=== PATIENT | female | born 1985 | race Two or more races ===

== ENCOUNTER 2020-11-02 21:34 | Emergency (ER) | payer OTHER ==
[~2020-11-02] VITALS: Ht 160 cm; Wt 60.6 kg
[2020-11-02] MEDS ORDERED: MESA400C2 PO (22:07)
[2020-11-02] MEDS ORDERED: RISP2TAB45 PO (22:07)
[2020-11-02] MEDS ORDERED: SERT-162 PO (22:07)
[2020-11-02] MEDS ORDERED: MORPHINE SULFATE 4 MG/ML SYRINGE IVP ONE (22:15)
[2020-11-02] MEDS ORDERED: BARIUM SULFATE 0.1% SUSPENSION 450 ML BOTTLE PO ONE (22:15)
[2020-11-02] MEDS ORDERED: PB/HYOSCY/ATR/SCOP/LIDO/MAALOX 55 ML BOTTLE PO ONE (22:15)
[2020-11-02] MEDS ORDERED: SODIUM CHLORIDE 0.9% 1,000 ML IV ONE (22:15)
[2020-11-02] MEDS ORDERED: FAMOTIDINE 10 MG/ML 2 ML VIAL IVP ONE (22:15)
[2020-11-02 22:25] LABS: APPEARANCE,URINE CLOUDY (CLEAR); BILIRUBIN,URINE NEGATIVE (NEGATIVE); GLUCOSE, URINE (UA) NEGATIVE (NEGATIVE); KETONES,URINE NEGATIVE (NEGATIVE); LEUKOCYTE ESTERASE ,URINE NEGATIVE (NEGATIVE); NITRATE,URINE NEGATIVE (NEGATIVE); OCCULT BLOOD,URINE NEGATIVE (NEGATIVE); PH,URINE 7.5 (5.0-8.0); PROTEIN,URINE NEGATIVE (NEGATIVE)
[2020-11-02 22:38] LABS: BACTERIA,URINE None Seen /HPF (None Seen); RBC,URINE 0-2 /HPF (0-2); SQUAMOUS EPITHELIAL CELL,UR None Seen /LPF (None Seen); WBC,URINE 0-2 /HPF (0-5)
[2020-11-02 22:43] LABS: BASOPHILS % (AUTO) 0.5 % (0.0-2.0); EOSINOPHILS % (AUTO) 1.8 % (1.0-6.0); HEMATOCRIT 38.7 % (36-46); LYMPHOCYTES # (AUTO) 2.3 K/uL (1.0-4.8); MEAN CORPUSCULAR HEMOGLOBIN 29.9 pg (26.0-34.0); MEAN CORPUSCULAR HGB CONC 33.7 G/dL (31.0-37.0); MEAN CORPUSCULAR VOLUME 89 fL (80-100); MONOCYTES # (AUTO) 0.6 K/uL (0.1-1.0); MONOCYTES % (AUTO) 8.6 % (2.0-9.0); NEUTROPHILS # (AUTO) 4.3 K/uL (1.8-7.7); NEUTROPHILS % (AUTO) 58.1 % (40.0-70.0); PLATELET COUNT (AUTO) 273 K/uL (150-450); RED BLOOD CELL COUNT(AUTO) 4.37 MIL/uL (4.00-5.20); RED CELL DISTRIBUTION WIDTH 13.3 % (11.5-14.5)
[2020-11-02 22:53] LABS: ANION GAP 3 mmol/L (8-16); CALCIUM, TOTAL 8.9 mg/dL (8.8-10.5); CARBON DIOXIDE 31 mmol/L (22-29); CHLORIDE 101 mmol/L (98-107); CREATININE 0.93 mg/dL (0.60-1.30); GLOMERULAR FILTR. RATE CALC > 60 mL/min (>60); GLUCOSE,RANDOM 100 mg/dL (70-110); POTASSIUM 4.5 mmol/L (3.5-5.1); SODIUM SERUM 135 mmol/L (136-145); UREA NITROGEN, BLOOD 14 mg/dL (7-18)
[2020-11-02 23:06] LABS: ALANINE AMINOTRANSFERASE 21 U/L (12-78); ALBUMIN 3.5 g/dL (3.4-5.0); ALKALINE PHOSPHATASE 78 U/L (46-116); ASPARTATE AMINOTRANSFERASE 18 U/L (15-37); BILIRUBIN,TOTAL 0.6 mg/dL (0.1-1.0); HCG,QUANTITATIVE 6 mIU/mL (0-6); LIPASE 91 U/L (73-393); TOTAL PROTEIN, SERUM 6.2 g/dL (6.4-8.2)
[2020-11-02] MEDS ORDERED: SODIUM CHLORIDE 0.9% 100 ML ONE (23:09)
[2020-11-02] MEDS ORDERED: IOHEXOL 350 MG/ML 100 ML VIAL ONE (23:09)
[2020-11-03 00:30] VITALS: BP 122/63
== END 2020-11-03 00:59 | disposition home or self-care (01) ==
LOC: EMS 21:36
DX: K29.70 Gastritis, unspecified, without bleeding (principal); Z90.710 Acquired absence of both cervix and uterus
CPT/HCPCS: 36415; 74177; 80053; 81001; 83690; 84702; 85025; 96361; 96374; 96375; 99285; A9575; J2270; J3490; J7030; J7050

== ENCOUNTER 2020-11-18 17:20 | Emergency (ER) | payer OTHER ==
[~2020-11-18] VITALS: Ht 162.6 cm; Wt 60.0 kg
[~2020-11-18 17:20] MED LIST: MESA400C2 PO; RISP0.5T61 PO; RISP2TAB45 PO; SERT-158 PO; SERT-162 PO
[2020-11-18] MEDS ORDERED: KETOROLAC TROMETHAMINE 30 MG/ML VIAL IVP ONE (18:30)
[2020-11-18] MEDS ORDERED: PANTOPRAZOLE SODIUM 40 MG/VIAL IVP ONE (18:30)
[2020-11-18 19:02] LABS: BASOPHILS % (AUTO) 1.1 % (0.0-2.0); EOSINOPHILS % (AUTO) 1.4 % (1.0-6.0); HEMATOCRIT 38.2 % (36-46); HEMOGLOBIN 12.7 g/dL (12.0-16.0); LYMPHOCYTES # (AUTO) 1.3 K/uL (1.0-4.8); LYMPHOCYTES % (AUTO) 26.1 % (22.0-44.0); MEAN CORPUSCULAR HEMOGLOBIN 29.6 pg (26.0-34.0); MEAN CORPUSCULAR HGB CONC 33.2 G/dL (31.0-37.0); MEAN CORPUSCULAR VOLUME 89 fL (80-100); MONOCYTES # (AUTO) 0.5 K/uL (0.1-1.0); MONOCYTES % (AUTO) 10.4 % (2.0-9.0); PLATELET COUNT (AUTO) 298 K/uL (150-450); RED BLOOD CELL COUNT(AUTO) 4.28 MIL/uL (4.00-5.20); RED CELL DISTRIBUTION WIDTH 13.1 % (11.5-14.5)
[2020-11-18 19:12] LABS: CALCIUM, TOTAL 8.6 mg/dL (8.8-10.5); CARBON DIOXIDE 27 mmol/L (22-29); CHLORIDE 106 mmol/L (98-107); CREATININE 0.93 mg/dL (0.60-1.30); GLOMERULAR FILTR. RATE CALC > 60 mL/min (>60); GLUCOSE,RANDOM 100 mg/dL (70-110); UREA NITROGEN, BLOOD 11 mg/dL (7-18)
[2020-11-18 19:23] LABS: ALANINE AMINOTRANSFERASE 25 U/L (12-78); ALBUMIN 3.7 g/dL (3.4-5.0); ALKALINE PHOSPHATASE 85 U/L (46-116); ASPARTATE AMINOTRANSFERASE 15 U/L (15-37); BILIRUBIN,TOTAL 0.8 mg/dL (0.1-1.0); HCG,QUANTITATIVE 5 mIU/mL (0-6); LIPASE 93 U/L (73-393); TOTAL PROTEIN, SERUM 6.5 g/dL (6.4-8.2)
[2020-11-18 19:30] LABS: POTASSIUM 3.9 mmol/L (3.5-5.1); SODIUM SERUM 145 mmol/L (136-145)
[2020-11-18 19:33] LABS: ANION GAP 12 mmol/L (8-16)
[2020-11-18 20:15] VITALS: BP 117/72
== END 2020-11-18 20:56 | disposition home or self-care (01) ==
LOC: EMS 17:20
DX: K29.70 Gastritis, unspecified, without bleeding (principal); Z90.710 Acquired absence of both cervix and uterus; Z90.89 Acquired absence of other organs
CPT/HCPCS: 80053; 83690; 84702; 85025; 96374; 99283; C9113

== ENCOUNTER → 2021-02-04 | Emergency (ER) | payer MEDICAID ==
[~2021-02-04] VITALS: Ht 162.6 cm; Wt 63.6 kg
[~2021-02-04] MED LIST changes: +BISMUTH SUBSALICYLATE 524 MG/30 ML SUSPENSION UDCUP PO ONE; +ONDANSETRON HCL 4 MG/2 ML VIAL IVP ONE; +PANT-31 PO; +PRED-409 PO; +PRED20 PO; +SODIUM CHLORIDE 0.9% 1,000 ML IV ONE
[2021-02-04 20:26] LABS: APPEARANCE,URINE CLOUDY (CLEAR); BILIRUBIN,URINE NEGATIVE (NEGATIVE); GLUCOSE, URINE (UA) NEGATIVE (NEGATIVE); KETONES,URINE NEGATIVE (NEGATIVE); LEUKOCYTE ESTERASE ,URINE TRACE (NEGATIVE); NITRATE,URINE NEGATIVE (NEGATIVE); OCCULT BLOOD,URINE NEGATIVE (NEGATIVE); PROTEIN,URINE NEGATIVE (NEGATIVE); UROBILINOGEN,URINE 0.2 mg/dL (<=1.0)
[2021-02-04 20:29] LABS: BASOPHILS % (AUTO) 0.5 % (0.0-2.0); EOSINOPHILS % (AUTO) 1.2 % (1.0-6.0); HEMATOCRIT 36.9 % (36-46); HEMOGLOBIN 12.5 g/dL (12.0-16.0); LYMPHOCYTES # (AUTO) 1.5 K/uL (1.0-4.8); LYMPHOCYTES % (AUTO) 27.7 % (22.0-44.0); MEAN CORPUSCULAR HEMOGLOBIN 30.4 pg (26.0-34.0); MEAN CORPUSCULAR HGB CONC 33.9 G/dL (31.0-37.0); MEAN CORPUSCULAR VOLUME 89 fL (80-100); MONOCYTES # (AUTO) 0.9 K/uL (0.1-1.0); MONOCYTES % (AUTO) 15.5 % (2.0-9.0); NEUTROPHILS % (AUTO) 55.1 % (40.0-70.0); PLATELET COUNT (AUTO) 242 K/uL (150-450); RED BLOOD CELL COUNT(AUTO) 4.13 MIL/uL (4.00-5.20); RED CELL DISTRIBUTION WIDTH 13.3 % (11.5-14.5)
[2021-02-04 20:33] LABS: ANION GAP 8 mmol/L (8-16); CALCIUM, TOTAL 8.4 mg/dL (8.8-10.5); CARBON DIOXIDE 26 mmol/L (22-29); CHLORIDE 105 mmol/L (98-107); CREATININE 0.72 mg/dL (0.60-1.30); GLOMERULAR FILTR. RATE CALC > 60 mL/min (>60); GLUCOSE,RANDOM 102 mg/dL (70-110); POTASSIUM 3.7 mmol/L (3.5-5.1); SODIUM SERUM 139 mmol/L (136-145); UREA NITROGEN, BLOOD 14 mg/dL (7-18)
[2021-02-04 20:45] LABS: ALANINE AMINOTRANSFERASE 25 U/L (12-78); ALBUMIN 3.2 g/dL (3.4-5.0); ALKALINE PHOSPHATASE 82 U/L (46-116); ASPARTATE AMINOTRANSFERASE 17 U/L (15-37); BILIRUBIN,TOTAL 0.4 mg/dL (0.1-1.0); HCG,QUANTITATIVE 3 mIU/mL (0-6); LIPASE 109 U/L (73-393); TOTAL PROTEIN, SERUM 6.3 g/dL (6.4-8.2)
[2021-02-04 20:48] LABS: RBC,URINE None Seen /HPF (0-2)
[2021-02-04 20:49] LABS: BACTERIA,URINE None Seen /HPF (None Seen); SQUAMOUS EPITHELIAL CELL,UR Few /LPF (None Seen)
[2021-02-04 21:10] VITALS: BP 109/76
== END | disposition home or self-care (01) ==
LOC: EMS 18:58
DX: K50.90 Crohn's disease, unspecified, without complications (principal); R20.0 Anesthesia of skin; Z90.710 Acquired absence of both cervix and uterus; Z90.89 Acquired absence of other organs; Z88.1 Allergy status to other antibiotic agents; Z91.013 Allergy to seafood
CPT/HCPCS: 36415; 80053; 81001; 83690; 84702; 85025; 96361; 96374; 99283; J2405; J7030

== ENCOUNTER 2021-02-17 21:29 | Emergency (ER) | payer MEDICAID ==
[~2021-02-17] VITALS: Ht 162.6 cm; Wt 64.0 kg
[~2021-02-17 21:29] MED LIST changes: -BISMUTH SUBSALICYLATE 524 MG/30 ML SUSPENSION UDCUP PO ONE; -ONDANSETRON HCL 4 MG/2 ML VIAL IVP ONE; -SODIUM CHLORIDE 0.9% 1,000 ML IV ONE
[2021-02-17] MEDS ORDERED: LIDOCAINE 5% TRANSDERMAL PATCH TD ONE (23:00)
[2021-02-17] MEDS ORDERED: ACETAMINOPHEN 500 MG TABLET PO ONE (23:00)
[2021-02-17] MEDS ORDERED: SODIUM CHLORIDE 0.9% 100 ML ONE (23:33)
[2021-02-17] MEDS ORDERED: IOHEXOL 350 MG/ML 100 ML VIAL ONE (23:34)
[2021-02-18 00:22] LABS: BASOPHILS % (AUTO) 0.7 % (0.0-2.0); EOSINOPHILS % (AUTO) 1.4 % (1.0-6.0); HEMATOCRIT 37.8 % (36-46); HEMOGLOBIN 12.8 g/dL (12.0-16.0); LYMPHOCYTES # (AUTO) 1.4 K/uL (1.0-4.8); LYMPHOCYTES % (AUTO) 21.9 % (22.0-44.0); MEAN CORPUSCULAR VOLUME 88 fL (80-100); MONOCYTES # (AUTO) 0.5 K/uL (0.1-1.0); MONOCYTES % (AUTO) 8.4 % (2.0-9.0); NEUTROPHILS # (AUTO) 4.4 K/uL (1.8-7.7); NEUTROPHILS % (AUTO) 67.6 % (40.0-70.0); PLATELET COUNT (AUTO) 287 K/uL (150-450); RED BLOOD CELL COUNT(AUTO) 4.28 MIL/uL (4.00-5.20)
[2021-02-18 00:30] LABS: ANION GAP 5 mmol/L (8-16); CALCIUM, TOTAL 8.3 mg/dL (8.8-10.5); CARBON DIOXIDE 29 mmol/L (22-29); CHLORIDE 102 mmol/L (98-107); CREATININE 0.73 mg/dL (0.60-1.30); GLOMERULAR FILTR. RATE CALC > 60 mL/min (>60); GLUCOSE,RANDOM 99 mg/dL (70-110); POTASSIUM 3.8 mmol/L (3.5-5.1); SODIUM SERUM 136 mmol/L (136-145); UREA NITROGEN, BLOOD 11 mg/dL (7-18)
[2021-02-18 00:41] LABS: ALANINE AMINOTRANSFERASE 24 U/L (12-78); ALBUMIN 3.4 g/dL (3.4-5.0); ALKALINE PHOSPHATASE 82 U/L (46-116); ASPARTATE AMINOTRANSFERASE 14 U/L (15-37); BILIRUBIN,TOTAL 0.8 mg/dL (0.1-1.0); HCG,QUANTITATIVE 3 mIU/mL (0-6); LIPASE 79 U/L (73-393); TOTAL PROTEIN, SERUM 6.3 g/dL (6.4-8.2)
[2021-02-18 01:51] VITALS: BP 106/69
== END 2021-02-18 01:54 | disposition home or self-care (01) ==
LOC: EMS 21:31
DX: R07.1 Chest pain on breathing (principal); Z88.1 Allergy status to other antibiotic agents; Z91.013 Allergy to seafood; Z79.899 Other long term (current) drug therapy
CPT/HCPCS: 71260; 74177; 80053; 83690; 84702; 85025; 99285; A9575; J7050; 72193; 74160; Q9967

== ENCOUNTER 2021-12-08 17:35 | Emergency (ER) | payer MEDICAID ==
[~2021-12-08] VITALS: Ht 162.6 cm; Wt 52.3 kg
[~2021-12-08 17:35] MED LIST changes: -PRED-409 PO; +PRED-549 PO; +PRED-554 PO; -PRED20 PO
[2021-12-08 18:11] VITALS: BP 104/65
[2021-12-08] MEDS ORDERED: SODIUM CHLORIDE 0.9% 1,000 ML IV ONE (20:45)
[2021-12-08 20:57] LABS: BASOPHILS % (AUTO) 0.5 % (0.0-2.0); EOSINOPHILS % (AUTO) 0.5 % (1.0-6.0); HEMATOCRIT 40.6 % (36-46); HEMOGLOBIN 13.7 g/dL (12.0-16.0); LYMPHOCYTES # (AUTO) 1.2 K/uL (1.0-4.8); LYMPHOCYTES % (AUTO) 20.1 % (22.0-44.0); MEAN CORPUSCULAR HEMOGLOBIN 29.6 pg (26.0-34.0); MEAN CORPUSCULAR HGB CONC 33.8 G/dL (31.0-37.0); MEAN CORPUSCULAR VOLUME 88 fL (80-100); MONOCYTES # (AUTO) 0.3 K/uL (0.1-1.0); MONOCYTES % (AUTO) 5.6 % (2.0-9.0); NEUTROPHILS # (AUTO) 4.3 K/uL (1.8-7.7); NEUTROPHILS % (AUTO) 73.3 % (40.0-70.0); PLATELET COUNT (AUTO) 288 K/uL (150-450); RED BLOOD CELL COUNT(AUTO) 4.64 MIL/uL (4.00-5.20); RED CELL DISTRIBUTION WIDTH 13.2 % (11.5-14.5)
[2021-12-08 21:11] LABS: ALANINE AMINOTRANSFERASE 79 U/L (12-78); ALBUMIN 3.7 g/dL (3.4-5.0); ALKALINE PHOSPHATASE 98 U/L (46-116); ANION GAP 8 mmol/L (8-16); ASPARTATE AMINOTRANSFERASE 41 U/L (15-37); BILIRUBIN,TOTAL 1.5 mg/dL (0.1-1.0); CARBON DIOXIDE 28 mmol/L (22-29); CHLORIDE 103 mmol/L (98-107); CREATININE 0.61 mg/dL (0.60-1.30); GLOMERULAR FILTR. RATE CALC > 60 mL/min (>60); GLUCOSE,RANDOM 98 mg/dL (70-110); SODIUM SERUM 139 mmol/L (136-145); TOTAL PROTEIN, SERUM 6.9 g/dL (6.4-8.2); UREA NITROGEN, BLOOD 11 mg/dL (7-18)
[2021-12-08 21:18] LABS: POTASSIUM 2.9 mmol/L (3.5-5.1)
[2021-12-08] MEDS ORDERED: POTASSIUM CHLORIDE 20 MEQ ER TABLET PO ONE (21:30)
[2021-12-08 22:15] LABS: AMPHET/METH SCREEN,URINE NEGATIVE (NEGATIVE); BARBITURATE SCREEN, URINE NEGATIVE (NEGATIVE); BENZODIAZEPINES SCREEN,URINE NEGATIVE (NEGATIVE); CANNABINOID SCREEN,URINE NEGATIVE (NEGATIVE); COCAINE SCREEN,URINE NEGATIVE (NEGATIVE); METHADONE SCREEN, URINE NEGATIVE (NEGATIVE); OPIATE SCREEN,URINE NEGATIVE (NEGATIVE)
[2021-12-08 22:16] LABS: PHENCYCLIDINE SCREEN,URINE NEGATIVE (NEGATIVE)
== END 2021-12-09 02:00 | disposition home or self-care (01) ==
LOC: EMS 17:37
DX: M54.50 Low back pain, unspecified (principal); R10.30 Lower abdominal pain, unspecified; Z91.013 Allergy to seafood; Z88.1 Allergy status to other antibiotic agents; Z79.899 Other long term (current) drug therapy
CPT/HCPCS: 36415; 72100; 74022; 74176; 80053; 80307; 82962; 84703; 85025; 96360; 99285; G0480; J7030

== ENCOUNTER 2023-04-11 12:08 | Emergency (ER) | payer MEDICAID, OTHER ==
[~2023-04-11] VITALS: Ht 160 cm; Wt 50.5 kg
[~2023-04-11 12:08] MED LIST changes: -PRED-549 PO; -SERT-162 PO
[2023-04-11] MEDS ORDERED: PANT20TA18 PO (12:35)
[2023-04-11] MEDS ORDERED: QUET400T13 PO (12:35)
[2023-04-11] MEDS ORDERED: PALI3TAB14 PO (12:35)
[2023-04-11] MEDS ORDERED: QUET200T30 PO (12:35)
[2023-04-11] MEDS ORDERED: AMOX500T2 PO (12:36)
[2023-04-11 12:56] LABS: COVID AG,FIA SOURCE NASAL SWAB
[2023-04-11 13:05] LABS: BASOPHILS % (AUTO) 0.7 % (0.0-2.0); EOSINOPHILS % (AUTO) 0.8 % (1.0-6.0); HEMATOCRIT 41.5 % (36-46); HEMOGLOBIN 14.1 g/dL (12.0-16.0); LYMPHOCYTES # (AUTO) 1.3 K/uL (1.0-4.8); LYMPHOCYTES % (AUTO) 25.3 % (22.0-44.0); MEAN CORPUSCULAR HEMOGLOBIN 30.4 pg (26.0-34.0); MEAN CORPUSCULAR VOLUME 89 fL (80-100); MONOCYTES # (AUTO) 0.4 K/uL (0.1-1.0); MONOCYTES % (AUTO) 8.2 % (2.0-9.0); NEUTROPHILS # (AUTO) 3.3 K/uL (1.8-7.7); PLATELET COUNT (AUTO) 285 K/uL (150-450); RED BLOOD CELL COUNT(AUTO) 4.65 MIL/uL (4.00-5.20); RED CELL DISTRIBUTION WIDTH 13.4 % (11.5-14.5)
[2023-04-11 13:07] VITALS: TEMP 97.7
[2023-04-11 13:12] LABS: ANION GAP 7 mmol/L (8-16); CALCIUM, TOTAL 9.7 mg/dL (8.8-10.5); CARBON DIOXIDE 30 mmol/L (22-29); CHLORIDE 101 mmol/L (98-107); CREATININE 0.83 mg/dL (0.60-1.30); GLOMERULAR FILTR. RATE CALC > 60 mL/min (>60); GLUCOSE,RANDOM 100 mg/dL (70-110); POTASSIUM 3.7 mmol/L (3.5-5.1); SODIUM SERUM 138 mmol/L (136-145); UREA NITROGEN, BLOOD 16 mg/dL (7-18)
[2023-04-11 13:18] LABS: ALANINE AMINOTRANSFERASE 26 U/L (12-78); ALBUMIN 4.1 g/dL (3.4-5.0); ALKALINE PHOSPHATASE 104 U/L (46-116); ASPARTATE AMINOTRANSFERASE 15 U/L (15-37); BILIRUBIN,TOTAL 0.7 mg/dL (0.1-1.0); TOTAL PROTEIN, SERUM 7.6 g/dL (6.4-8.2)
[2023-04-11 13:18] LABS: SARS-COV2 (COVID) ANTIGEN,FIA Negative (Negative)
[2023-04-11 13:20] LABS: ALCOHOL, BLOOD (SERUM) < 3 mg/dL (0-10)
[2023-04-11 15:11] VITALS: BP 116/79; PULSE 98; RESP 16
== END 2023-04-11 16:15 | disposition home or self-care (01) ==
LOC: EMS 12:08
DX: R45.851 Suicidal ideations (principal); Z90.710 Acquired absence of both cervix and uterus; Z98.890 Other specified postprocedural states; Z91.013 Allergy to seafood; Z88.8 Allergy status to other drugs, medicaments and biological substances; Z20.822 Contact with and (suspected) exposure to COVID-19
CPT/HCPCS: 99285; 87426; 80053; 85025; 36415; G0480

== ENCOUNTER 2024-03-15 13:30 | Emergency (ER) | payer MEDICAID, OTHER ==
[~2024-03-15] VITALS: Ht 167.6 cm; Wt 70.9 kg
[~2024-03-15 13:30] MED LIST changes: +AMOX500T2 PO; -MESA400C2 PO; +PALI3TAB14 PO; -PANT-31 PO; +PANT20TA18 PO; -PRED-554 PO; +QUET200T30 PO; +QUET400T13 PO; -RISP0.5T61 PO; -RISP2TAB45 PO; -SERT-158 PO
[2024-03-15 13:49] VITALS: TEMP 97.6
[2024-03-15] MEDS: SODIUM CHLORIDE 0.9% 1,000 ML IV ONE (14:14)
[2024-03-15] MEDS: ONDANSETRON HCL 4 MG/2 ML VIAL IVP ONE (14:15)
[2024-03-15 14:22] LABS: BASOPHILS % (AUTO) 0.4 % (0.0-2.0); EOSINOPHILS % (AUTO) 1.9 % (1.0-6.0); HEMATOCRIT 47.1 % (36-46); HEMOGLOBIN 15.6 g/dL (12.0-16.0); LYMPHOCYTES % (AUTO) 18.4 % (22.0-44.0); MEAN CORPUSCULAR HEMOGLOBIN 30.4 pg (26.0-34.0); MEAN CORPUSCULAR HGB CONC 33.1 G/dL (31.0-37.0); MEAN CORPUSCULAR VOLUME 92 fL (80-100); MONOCYTES # (AUTO) 0.7 K/uL (0.1-1.0); MONOCYTES % (AUTO) 12.7 % (2.0-9.0); NEUTROPHILS # (AUTO) 3.5 K/uL (1.8-7.7); NEUTROPHILS % (AUTO) 66.6 % (40.0-70.0); PLATELET COUNT (AUTO) 281 K/uL (150-450); RED BLOOD CELL COUNT(AUTO) 5.14 MIL/uL (4.00-5.20); RED CELL DISTRIBUTION WIDTH 13.4 % (11.5-14.5); WHITE BLOOD COUNT (AUTO) 5.3 K/uL (4.5-11.0)
[2024-03-15 15:07] LABS: TROPONIN I-HIGH SENSITIVITY Less Than 4 ng/L (<51)
[2024-03-15 15:16] LABS: ANION GAP 10 mmol/L (8-16); CALCIUM, TOTAL 9.5 mg/dL (8.8-10.5); CARBON DIOXIDE 31 mmol/L (22-29); CHLORIDE 95 mmol/L (98-107); CREATININE 0.95 mg/dL (0.60-1.30); GLOMERULAR FILTR. RATE CALC > 60 mL/min (>60); GLUCOSE,RANDOM 121 mg/dL (70-110); SODIUM SERUM 136 mmol/L (136-145); UREA NITROGEN, BLOOD 30 mg/dL (7-18)
[2024-03-15 15:21] LABS: LIPASE 15 U/L (16-77); VALPROIC ACID 47 mcg/mL (50-100)
[2024-03-15 15:39] LABS: APPEARANCE,URINE HAZY (CLEAR); BILIRUBIN,URINE NEGATIVE (NEGATIVE); COLOR,URINE YELLOW (YELLOW); GLUCOSE, URINE (UA) NEGATIVE (NEGATIVE); LEUKOCYTE ESTERASE ,URINE TRACE (NEGATIVE); NITRATE,URINE NEGATIVE (NEGATIVE); OCCULT BLOOD,URINE TRACE (NEGATIVE); PH,URINE 6.5 (5.0-8.0); PROTEIN,URINE 100-200,SEE CONFIRM mg/dL (NEGATIVE); SPECIFIC GRAVITIY, URINE 1.033 (1.003-1.030)
[2024-03-15] MEDS: POTASSIUM CHL 10 MEQ/WATER 50 ML IV SCH (15:47)
[2024-03-15] MEDS: POTASSIUM CHLORIDE 20 MEQ ER TABLET PO ONE (15:47)
[2024-03-15 16:13] LABS: BACTERIA,URINE Few /HPF (None Seen); SULFOSALICYLIC ACID,URINE 1+ (Negative)
[2024-03-15 16:14] LABS: SQUAMOUS EPITHELIAL CELL,UR Moderate /LPF (None Seen)
[2024-03-15] MEDS ORDERED: ONDA-104 PO (17:40)
[2024-03-15 18:30] VITALS: BP 120/72; PULSE 100; RESP 18; O2SAT 95
== END 2024-03-16 01:46 | disposition home or self-care (01) ==
LOC: EMS 13:30
DX: A08.4 Viral intestinal infection, unspecified (principal); R11.2 Nausea with vomiting, unspecified; R19.7 Diarrhea, unspecified; E87.6 Hypokalemia
CPT/HCPCS: 99285; 74176; 96365; 96361; 96375; 80048; 80164; 81001; 83690; 83735; 84484; 84702; 85025; 36415; 87086; 87186; 93005; J2405; J3480; J7030; 81002

== ENCOUNTER 2024-04-13 16:11 | Emergency (ER) | payer OTHER ==
[~2024-04-13] VITALS: Ht 160 cm; Wt 59.1 kg
[~2024-04-13 16:11] MED LIST changes: +ONDA-104 PO
[2024-04-13 16:16] VITALS: BP 105/65; PULSE 84; RESP 18; TEMP 98.2; O2SAT 99
[2024-04-13] MEDS: LORazepam 1 MG TABLET PO ONE (17:23)
[2024-04-13] MEDS: HALOPERIDOL 5 MG TABLET PO ONE (17:23)
[2024-04-13] MEDS ORDERED: DIVA-153 PO (17:27)
[2024-04-13] MEDS ORDERED: CETI10TA58 PO (17:27)
[2024-04-13 18:05] LABS: EOSINOPHILS % (AUTO) 2.6 % (1.0-6.0); HEMATOCRIT 41.2 % (36-46); HEMOGLOBIN 13.8 g/dL (12.0-16.0); LYMPHOCYTES # (AUTO) 1.5 K/uL (1.0-4.8); LYMPHOCYTES % (AUTO) 30.7 % (22.0-44.0); MEAN CORPUSCULAR HEMOGLOBIN 30.4 pg (26.0-34.0); MEAN CORPUSCULAR HGB CONC 33.5 G/dL (31.0-37.0); MEAN CORPUSCULAR VOLUME 91 fL (80-100); MONOCYTES # (AUTO) 0.5 K/uL (0.1-1.0); MONOCYTES % (AUTO) 9.8 % (2.0-9.0); NEUTROPHILS # (AUTO) 2.7 K/uL (1.8-7.7); NEUTROPHILS % (AUTO) 55.9 % (40.0-70.0); PLATELET COUNT (AUTO) 306 K/uL (150-450); RED BLOOD CELL COUNT(AUTO) 4.54 MIL/uL (4.00-5.20); RED CELL DISTRIBUTION WIDTH 13.4 % (11.5-14.5); WHITE BLOOD COUNT (AUTO) 4.8 K/uL (4.5-11.0)
[2024-04-13 18:16] LABS: ANION GAP 6 mmol/L (8-16); CALCIUM, TOTAL 8.5 mg/dL (8.8-10.5); CARBON DIOXIDE 28 mmol/L (22-29); CHLORIDE 106 mmol/L (98-107); CREATININE 0.73 mg/dL (0.60-1.30); GLOMERULAR FILTR. RATE CALC > 60 mL/min (>60); GLUCOSE,RANDOM 98 mg/dL (70-110); POTASSIUM 3.1 mmol/L (3.5-5.1); SODIUM SERUM 140 mmol/L (136-145); UREA NITROGEN, BLOOD 10 mg/dL (7-18)
[2024-04-13 18:30] LABS: ALCOHOL, URINE DRUG SCREEN NEGATIVE (NEGATIVE); AMPHET/METH SCREEN,URINE NEGATIVE (NEGATIVE); BARBITURATE SCREEN, URINE NEGATIVE (NEGATIVE); BENZODIAZEPINES SCREEN,URINE NEGATIVE (NEGATIVE); CANNABINOID SCREEN,URINE NEGATIVE (NEGATIVE); COCAINE SCREEN,URINE NEGATIVE (NEGATIVE); METHADONE SCREEN, URINE NEGATIVE (NEGATIVE); OPIATE SCREEN,URINE NEGATIVE (NEGATIVE); PHENCYCLIDINE SCREEN,URINE NEGATIVE (NEGATIVE)
[2024-04-13 18:36] LABS: ALCOHOL, BLOOD (SERUM) < 3 mg/dL (0-10)
[2024-04-13] MEDS: POTASSIUM CHLORIDE 20 MEQ ER TABLET PO ONE (18:56)
[2024-04-13] MEDS ORDERED: TRAZ-257 PO (18:57)
== END 2024-04-13 19:17 | disposition home or self-care (01) ==
LOC: EMS 16:11
DX: R07.89 Other chest pain (principal); F41.0 Panic disorder [episodic paroxysmal anxiety]; F31.9 Bipolar disorder, unspecified; K50.90 Crohn's disease, unspecified, without complications; G47.00 Insomnia, unspecified; Z90.710 Acquired absence of both cervix and uterus; Z90.49 Acquired absence of other specified parts of digestive tract
CPT/HCPCS: 99284; 80048; 85025; 36415; 80307; G0480

== ENCOUNTER 2024-04-13 21:55 | Emergency (ER) | payer OTHER ==
[~2024-04-13] VITALS: Ht 160 cm; Wt 59.1 kg
[~2024-04-13 21:55] MED LIST changes: +CETI10TA58 PO; +DIVA-153 PO; +TRAZ-257 PO
[2024-04-13 22:02] VITALS: BP 117/69; PULSE 98; RESP 18; TEMP 98.5; O2SAT 94
== END 2024-04-13 23:51 | disposition left against medical advice (07) ==
LOC: EMS 21:55
DX: R07.89 Other chest pain (principal); Z53.21 Procedure and treatment not carried out due to patient leaving prior to being seen by health care provider

== ENCOUNTER 2024-05-08 15:20 | Emergency (ER) | payer OTHER ==
[~2024-05-08] VITALS: Ht 160 cm; Wt 59.1 kg
[~2024-05-08 15:20] MED LIST changes: -AMOX500T2 PO; -ONDA-104 PO; -PALI3TAB14 PO; -PANT20TA18 PO; -QUET200T30 PO
[2024-05-08 15:42] VITALS: TEMP 97.8
[2024-05-08] MEDS: HALOPERIDOL 5 MG TABLET PO ONE (16:56)
[2024-05-08] MEDS: LORazepam 2 MG TABLET PO ONE (16:56)
[2024-05-08 17:24] VITALS: BP 108/66; PULSE 84; RESP 18; O2SAT 100
== END 2024-05-08 17:25 | disposition home or self-care (01) ==
LOC: EMS 15:20
DX: F41.9 Anxiety disorder, unspecified (principal); K50.90 Crohn's disease, unspecified, without complications; Z90.49 Acquired absence of other specified parts of digestive tract; Z90.710 Acquired absence of both cervix and uterus
CPT/HCPCS: 99283

== ENCOUNTER 2024-06-29 22:23 | Emergency (ER) | payer OTHER ==
[~2024-06-29] VITALS: Ht 160 cm; Wt 56.8 kg
[~2024-06-29 22:23] MED LIST changes: -CETI10TA58 PO; -TRAZ-257 PO
[2024-06-29 22:27] VITALS: TEMP 97.9
[2024-06-29 23:05] LABS: BASOPHILS % (AUTO) 1.4 % (0.0-2.0); EOSINOPHILS % (AUTO) 1.3 % (1.0-6.0); HEMATOCRIT 38.8 % (36-46); HEMOGLOBIN 13.2 g/dL (12.0-16.0); LYMPHOCYTES # (AUTO) 1.2 K/uL (1.0-4.8); MEAN CORPUSCULAR HEMOGLOBIN 31.2 pg (26.0-34.0); MEAN CORPUSCULAR HGB CONC 33.9 G/dL (31.0-37.0); MEAN CORPUSCULAR VOLUME 92 fL (80-100); MONOCYTES # (AUTO) 0.6 K/uL (0.1-1.0); MONOCYTES % (AUTO) 9.1 % (2.0-9.0); NEUTROPHILS # (AUTO) 4.5 K/uL (1.8-7.7); NEUTROPHILS % (AUTO) 69.2 % (40.0-70.0); PLATELET COUNT (AUTO) 245 K/uL (150-450); RED BLOOD CELL COUNT(AUTO) 4.23 MIL/uL (4.00-5.20); RED CELL DISTRIBUTION WIDTH 13.7 % (11.5-14.5); WHITE BLOOD COUNT (AUTO) 6.5 K/uL (4.5-11.0)
[2024-06-29 23:17] LABS: ALANINE AMINOTRANSFERASE 22 U/L (12-78); ALBUMIN 3.3 g/dL (3.4-5.0); ALKALINE PHOSPHATASE 83 U/L (46-116); ANION GAP 6 mmol/L (8-16); ASPARTATE AMINOTRANSFERASE 17 U/L (15-37); BILIRUBIN,TOTAL 0.6 mg/dL (0.1-1.0); CALCIUM, TOTAL 8.6 mg/dL (8.8-10.5); CARBON DIOXIDE 34 mmol/L (22-29); CHLORIDE 106 mmol/L (98-107); CREATININE 0.85 mg/dL (0.60-1.30); GLOMERULAR FILTR. RATE CALC > 60 mL/min (>60); GLUCOSE,RANDOM 99 mg/dL (70-110); POTASSIUM 3.9 mmol/L (3.5-5.1); SODIUM SERUM 146 mmol/L (136-145); TOTAL PROTEIN, SERUM 6.6 g/dL (6.4-8.2); UREA NITROGEN, BLOOD 15 mg/dL (7-18)
[2024-06-29 23:58] LABS: HCG,QUANTITATIVE 3 mIU/mL (0-6); LIPASE 27 U/L (16-77)
[2024-06-30] MEDS: SODIUM CHLORIDE 0.9% 1,000 ML IV ONE (00:20)
[2024-06-30] MEDS: ONDANSETRON HCL 4 MG/2 ML VIAL IVP ONE (00:20)
[2024-06-30 00:22] LABS: COVID AG,FIA SOURCE NASAL SWAB
[2024-06-30 00:32] LABS: INFLUENZA TYPE A NEGATIVE FOR TYPE A (NEGATIVE); INFLUENZA TYPE B NEGATIVE FOR TYPE B (NEGATIVE)
[2024-06-30 00:33] LABS: SARS-COV2 (COVID) ANTIGEN,FIA Negative (Negative)
[2024-06-30] MEDS ORDERED: ONDA-104 PO (01:46)
[2024-06-30 02:00] VITALS: BP 109/77; PULSE 87; RESP 15; O2SAT 98
== END 2024-06-30 01:50 | disposition home or self-care (01) ==
LOC: EMS 22:23
DX: K52.9 Noninfective gastroenteritis and colitis, unspecified (principal); R10.9 Unspecified abdominal pain; Z90.49 Acquired absence of other specified parts of digestive tract; Z90.710 Acquired absence of both cervix and uterus; Z79.899 Other long term (current) drug therapy; Z20.822 Contact with and (suspected) exposure to COVID-19
CPT/HCPCS: 99285; 74176; 96374; 96361; 87426; 80048; 80076; 83690; 84702; 85025; 87804; 36415; J2405; J7030

== ENCOUNTER 2024-10-12 20:06 | Emergency (ER) | payer OTHER ==
[~2024-10-12] VITALS: Ht 162.6 cm; Wt 65.0 kg
[~2024-10-12 20:06] MED LIST changes: +ONDA-104 PO
[2024-10-12 22:02] LABS: BASOPHILS % (AUTO) 0.2 % (0.0-2.0); EOSINOPHILS % (AUTO) 1.3 % (1.0-6.0); HEMATOCRIT 41.8 % (36-46); LYMPHOCYTES # (AUTO) 1.6 K/uL (1.0-4.8); LYMPHOCYTES % (AUTO) 27.6 % (22.0-44.0); MEAN CORPUSCULAR HEMOGLOBIN 31.4 pg (26.0-34.0); MEAN CORPUSCULAR HGB CONC 33.5 G/dL (31.0-37.0); MEAN CORPUSCULAR VOLUME 94 fL (80-100); MONOCYTES # (AUTO) 0.6 K/uL (0.1-1.0); MONOCYTES % (AUTO) 10.1 % (2.0-9.0); NEUTROPHILS # (AUTO) 3.6 K/uL (1.8-7.7); NEUTROPHILS % (AUTO) 60.8 % (40.0-70.0); PLATELET COUNT (AUTO) 269 K/uL (150-450); RED BLOOD CELL COUNT(AUTO) 4.47 MIL/uL (4.00-5.20); RED CELL DISTRIBUTION WIDTH 13.5 % (11.5-14.5); WHITE BLOOD COUNT (AUTO) 5.9 K/uL (4.5-11.0)
[2024-10-12 22:07] LABS: ANION GAP 7 mmol/L (8-16); CALCIUM, TOTAL 9.5 mg/dL (8.8-10.5); CARBON DIOXIDE 31 mmol/L (22-29); CHLORIDE 104 mmol/L (98-107); CREATININE 0.61 mg/dL (0.60-1.30); GLOMERULAR FILTR. RATE CALC > 60 mL/min (>60); GLUCOSE,RANDOM 94 mg/dL (70-110); POTASSIUM 3.9 mmol/L (3.5-5.1); SODIUM SERUM 142 mmol/L (136-145); UREA NITROGEN, BLOOD 14 mg/dL (7-18)
[2024-10-12 22:18] LABS: HCG,QUANTITATIVE 5 mIU/mL (0-6)
[2024-10-12 22:20] LABS: TROPONIN I-HIGH SENSITIVITY Less Than 4 ng/L (<51)
[2024-10-12] MEDS: KETOROLAC TROMETHAMINE 30 MG/ML VIAL IM ONE (23:48)
[2024-10-13 00:34] VITALS: BP 127/68; PULSE 75; RESP 16; TEMP 97.9; O2SAT 100
== END 2024-10-13 01:27 | disposition home or self-care (01) ==
LOC: MERGE 20:06 → EMS 20:06
DX: M94.0 Chondrocostal junction syndrome [Tietze] (principal)
CPT/HCPCS: 99285; 71045; 80048; 84484; 84702; 85025; 36415; 93005; 96372; J1885

== ENCOUNTER → 2025-01-01 | Emergency (ER) | payer MEDICAID, OTHER ==
[~2025-01-01] VITALS: Ht 160 cm; Wt 71.4 kg
[2025-01-01 01:37] VITALS: BP 134/81; PULSE 110; RESP 15; TEMP 97.4; O2SAT 95
[2025-01-01 02:02] LABS: PLATELET COUNT (AUTO) 225 K/uL (150-450); RED BLOOD CELL COUNT(AUTO) 4.25 MIL/uL (4.00-5.20); RED CELL DISTRIBUTION WIDTH 12.9 % (11.5-14.5); WHITE BLOOD COUNT (AUTO) 4.8 K/uL (4.5-11.0)
[2025-01-01 02:16] LABS: ASPARTATE AMINOTRANSFERASE 13.0 U/L (15-37); TOTAL PROTEIN, SERUM 6.5 g/dL (6.4-8.2)
[2025-01-01 02:38] LABS: CALCIUM, TOTAL 9.2 mg/dL (8.8-10.5); CREATININE 0.70 mg/dL (0.60-1.30); GLOMERULAR FILTR. RATE CALC > 60 mL/min (>60); GLUCOSE,RANDOM 111 mg/dL (70-110); SODIUM SERUM 140 mmol/L (136-145); UREA NITROGEN, BLOOD 17 mg/dL (7-18)
[2025-01-01 03:34] LABS: APPEARANCE,URINE CLEAR (CLEAR); GLUCOSE, URINE (UA) NEGATIVE (NEGATIVE); LEUKOCYTE ESTERASE ,URINE NEGATIVE (NEGATIVE); NITRATE,URINE NEGATIVE (NEGATIVE); OCCULT BLOOD,URINE NEGATIVE (NEGATIVE); SPECIFIC GRAVITIY, URINE 1.013 (1.003-1.030)
== END ==
LOC: EMS 01:33
DX: R10.9 Unspecified abdominal pain (principal); R30.9 Painful micturition, unspecified; R11.0 Nausea; Z90.49 Acquired absence of other specified parts of digestive tract; Z90.710 Acquired absence of both cervix and uterus; Z79.899 Other long term (current) drug therapy
CPT/HCPCS: 80048; 80076; 81003; 83690; 85025; 99283

== ENCOUNTER 2025-01-04 16:25 | Inpatient (IN) | payer OTHER ==
[~2025-01-04] VITALS: Ht 160 cm; Wt 66.8 kg
[2025-01-04] MEDS ORDERED: VEDO300V IV (17:11)
[2025-01-04 17:26] LABS: PLATELET COUNT (AUTO) 247 K/uL (150-450); RED BLOOD CELL COUNT(AUTO) 4.70 MIL/uL (4.00-5.20); RED CELL DISTRIBUTION WIDTH 12.9 % (11.5-14.5); WHITE BLOOD COUNT (AUTO) 8.0 K/uL (4.5-11.0)
[2025-01-04 17:36] LABS: CALCIUM, TOTAL 9.9 mg/dL (8.8-10.5); CREATININE 0.71 mg/dL (0.60-1.30); GLOMERULAR FILTR. RATE CALC > 60 mL/min (>60); GLUCOSE,RANDOM 100 mg/dL (70-110); SODIUM SERUM 142 mmol/L (136-145); UREA NITROGEN, BLOOD 16 mg/dL (7-18)
[2025-01-04 18:33] LABS: ASPARTATE AMINOTRANSFERASE 20.0 U/L (15-37); TOTAL PROTEIN, SERUM 7.6 g/dL (6.4-8.2)
[2025-01-04] MEDS: SODIUM CHLORIDE 0.9% 1,000 ML IV ONE (18:45)
[2025-01-04] MEDS: ONDANSETRON HCL 4 MG/2 ML VIAL IVP ONE (18:46)
[2025-01-04] MEDS: IOHEXOL 9 MG/ML 500 ML BOTTLE PO ONE (18:46)
[2025-01-04 20:42] LABS: APPEARANCE,URINE CLEAR (CLEAR); GLUCOSE, URINE (UA) NEGATIVE (NEGATIVE); LEUKOCYTE ESTERASE ,URINE NEGATIVE (NEGATIVE); NITRATE,URINE NEGATIVE (NEGATIVE); OCCULT BLOOD,URINE NEGATIVE (NEGATIVE); SPECIFIC GRAVITIY, URINE 1.021 (1.003-1.030)
[2025-01-04 20:52] LABS: SQUAMOUS EPITHELIAL CELL,UR Few /LPF (None Seen)
[2025-01-05] MEDS: RINGERS SOLUTION,LACTATED 1,000 ML IV SCH (00:24)
[2025-01-05] MEDS: ONDANSETRON HCL 4 MG/2 ML VIAL IVP PRN (02:22)
[2025-01-05 03:00] VITALS: BP 112/91; PULSE 105; RESP 18; TEMP 99; O2SAT 97
[2025-01-05 08:00] VITALS: BP 115/74; PULSE 100; RESP 19; TEMP 98.2; O2SAT 96
[2025-01-05] MEDS: DOCUSATE SODIUM 100 MG CAPSULE PO SCH (09:00)
[2025-01-05 10:18] LABS: CALCIUM, TOTAL 9.0 mg/dL (8.8-10.5); CREATININE 0.79 mg/dL (0.60-1.30); GLOMERULAR FILTR. RATE CALC > 60 mL/min (>60); GLUCOSE,RANDOM 103 mg/dL (70-110); SODIUM SERUM 139 mmol/L (136-145); UREA NITROGEN, BLOOD 15 mg/dL (7-18)
[2025-01-05 13:50] LABS: PLATELET COUNT (AUTO) 245 K/uL (150-450); RED BLOOD CELL COUNT(AUTO) 4.43 MIL/uL (4.00-5.20); RED CELL DISTRIBUTION WIDTH 13.1 % (11.5-14.5); WHITE BLOOD COUNT (AUTO) 4.5 K/uL (4.5-11.0)
[2025-01-05 16:05] VITALS: BP 116/79; PULSE 98; RESP 20; TEMP 98.1; O2SAT 95
[2025-01-05 19:50] VITALS: BP 124/80; PULSE 93; RESP 20; TEMP 98.1; O2SAT 93
[2025-01-05 20:22] VITALS: O2SAT 95
[2025-01-05] MEDS: HEPARIN SODIUM,PORCINE 5,000 UNITS/ML VIAL SQ SCH (23:31)
[2025-01-06 04:40] VITALS: BP 127/67; PULSE 102; RESP 18; TEMP 98.4; O2SAT 94
[2025-01-06 08:14] VITALS: BP 123/79; PULSE 94; RESP 18; TEMP 98.8; O2SAT 94
[2025-01-06 09:29] LABS: PLATELET COUNT (AUTO) 234 K/uL (150-450); RED BLOOD CELL COUNT(AUTO) 4.36 MIL/uL (4.00-5.20); RED CELL DISTRIBUTION WIDTH 12.8 % (11.5-14.5); WHITE BLOOD COUNT (AUTO) 7.2 K/uL (4.5-11.0)
[2025-01-06 09:36] LABS: CALCIUM, TOTAL 9.4 mg/dL (8.8-10.5); CREATININE 0.65 mg/dL (0.60-1.30); GLOMERULAR FILTR. RATE CALC > 60 mL/min (>60); GLUCOSE,RANDOM 91 mg/dL (70-110); SODIUM SERUM 146 mmol/L (136-145); UREA NITROGEN, BLOOD 10 mg/dL (7-18)
[2025-01-06 16:42] VITALS: BP 133/74; PULSE 95; RESP 18; TEMP 99.1; O2SAT 97
[2025-01-06 20:17] VITALS: BP 127/87; PULSE 105; RESP 18; TEMP 99.3; O2SAT 94
[2025-01-07 05:54] VITALS: BP 124/86; PULSE 100; RESP 18; TEMP 98.4; O2SAT 93
[2025-01-07] MEDS: MORPHINE SULFATE 2 MG/ML SYRINGE IVP PRN (06:05)
[2025-01-07 06:28] LABS: PLATELET COUNT (AUTO) 231 K/uL (150-450); RED BLOOD CELL COUNT(AUTO) 4.02 MIL/uL (4.00-5.20); RED CELL DISTRIBUTION WIDTH 12.7 % (11.5-14.5); WHITE BLOOD COUNT (AUTO) 7.2 K/uL (4.5-11.0)
[2025-01-07 06:41] LABS: CALCIUM, TOTAL 9.0 mg/dL (8.8-10.5); CREATININE 0.57 mg/dL (0.60-1.30); GLOMERULAR FILTR. RATE CALC > 60 mL/min (>60); GLUCOSE,RANDOM 75 mg/dL (70-110); SODIUM SERUM 146 mmol/L (136-145); UREA NITROGEN, BLOOD 9 mg/dL (7-18)
[2025-01-07] MEDS ORDERED: DIATRIZOATE MEGLU/SOD 660/100 MG/ML 120 ML BOTTLE ONE (07:37)
[2025-01-07] MEDS ORDERED: POTASSIUM CHLORIDE 20 MEQ ER TABLET PO PRN (08:15)
[2025-01-07] MEDS ORDERED: POTASSIUM CHL 10 MEQ/WATER 50 ML IV PRN (08:15)
[2025-01-07] MEDS ORDERED: MAGNESIUM SULFATE 2 GM/WATER 50 ML IV PRN (08:15)
[2025-01-07] MEDS ORDERED: MAGNESIUM OXIDE 400 MG TABLET PO PRN (08:15)
[2025-01-07] MEDS ORDERED: MAGNESIUM SULFATE 4 GM/WATER 100 ML IV PRN (08:15)
[2025-01-07 08:26] VITALS: BP 124/73; PULSE 87; RESP 18; TEMP 97.9; O2SAT 95
[2025-01-07] MEDS ORDERED: SODIUM CHLORIDE 0.9% 250 ML IV ONE (10:26)
[2025-01-07] MEDS: POTASSIUM CHL 10 MEQ/WATER 50 ML IV SCH (11:07)
[2025-01-07 16:09] VITALS: BP 107/75; PULSE 84; RESP 18; TEMP 98.2; O2SAT 94
[2025-01-07 20:52] VITALS: BP 126/78; PULSE 69; RESP 18; TEMP 98.2; O2SAT 96
[2025-01-08] MEDS: DEXTROSE 5%-WATER 1,000 ML IV ONE (00:18)
[2025-01-08 05:56] VITALS: BP 109/75; PULSE 73; RESP 18; TEMP 97.9; O2SAT 97
[2025-01-08 06:28] LABS: PLATELET COUNT (AUTO) 208 K/uL (150-450); RED BLOOD CELL COUNT(AUTO) 3.93 MIL/uL (4.00-5.20); RED CELL DISTRIBUTION WIDTH 12.7 % (11.5-14.5); WHITE BLOOD COUNT (AUTO) 5.4 K/uL (4.5-11.0)
[2025-01-08 06:58] LABS: CALCIUM, TOTAL 9.0 mg/dL (8.8-10.5); CREATININE 0.64 mg/dL (0.60-1.30); GLOMERULAR FILTR. RATE CALC > 60 mL/min (>60); GLUCOSE,RANDOM 72 mg/dL (70-110); SODIUM SERUM 142 mmol/L (136-145); UREA NITROGEN, BLOOD 8 mg/dL (7-18)
[2025-01-08 08:19] VITALS: BP 119/78; PULSE 78; RESP 18; TEMP 99.6; O2SAT 96
[2025-01-08] MEDS ORDERED: NICOTINE POLACRILEX 2 MG LOZENGE PO PRN (15:15)
[2025-01-08 16:02] VITALS: BP 105/68; PULSE 66; RESP 18; TEMP 98.6; O2SAT 97
[2025-01-08 19:53] VITALS: BP 111/87; PULSE 86; RESP 18; TEMP 98.1; O2SAT 97
[2025-01-09 03:24] VITALS: BP 107/75; PULSE 86; RESP 18; TEMP 98.4; O2SAT 97
[2025-01-09 08:55] VITALS: BP 103/68; PULSE 83; RESP 18; TEMP 97.8; O2SAT 96
[2025-01-09] MEDS ORDERED: LACT10SO85 PO (10:49)
== END 2025-01-09 14:24 | disposition home or self-care (01) | DRG 247 ==
LOC: EMS 16:29 → EDH 22:42 → 4E 01-05 03:00
PROVIDERS: ADMIT Internal Medicine; ATTEND Internal Medicine
PROC: 0D9670Z Drainage of Stomach with Drainage Device, Via Natural or Artificial Opening (ICD-10-PCS; principal; 2025-01-04)
DX: K56.609 Unspecified intestinal obstruction, unspecified as to partial versus complete obstruction (principal); F25.1 Schizoaffective disorder, depressive type; E86.0 Dehydration; F41.9 Anxiety disorder, unspecified; K50.90 Crohn's disease, unspecified, without complications; Z90.49 Acquired absence of other specified parts of digestive tract; Z90.710 Acquired absence of both cervix and uterus; Z91.010 Allergy to peanuts; Z91.040 Latex allergy status; Z59.00 Homelessness unspecified
CPT/HCPCS: 71045; 74177; 74250; 80048; 80076; 81001; 82040; 83690; 83735; 84132; 84703; 85025; 96374; 99285; G0378; J1644; J2270; J2405; J3480; J7030; J7050; J7060; J7120; 36415-L1; 36415-TC

== ENCOUNTER 2025-01-10 19:39 | Emergency (ER) | payer OTHER ==
[~2025-01-10] VITALS: Ht 160 cm; Wt 61.4 kg
[~2025-01-10 19:39] MED LIST changes: +LACT10SO85 PO; +VEDO300V IV
[2025-01-10 19:46] VITALS: BP 112/72; PULSE 88; RESP 16; TEMP 99.6; O2SAT 98
[2025-01-10] MEDS: DIVALPROEX SODIUM 125 MG DR CAPSULE PO ONE (23:14)
== END 2025-01-10 23:57 | disposition home or self-care (01) ==
LOC: EMS 19:39
DX: F31.9 Bipolar disorder, unspecified (principal); F25.9 Schizoaffective disorder, unspecified; K50.90 Crohn's disease, unspecified, without complications; Z90.49 Acquired absence of other specified parts of digestive tract; Z90.710 Acquired absence of both cervix and uterus; Z79.899 Other long term (current) drug therapy; Z00.8 Encounter for other general examination; Z91.010 Allergy to peanuts; Z91.040 Latex allergy status
CPT/HCPCS: 99284; Z7502; Z7610

== ENCOUNTER 2025-01-28 12:05 | Emergency (ER) | payer OTHER ==
[~2025-01-28] VITALS: Ht 165.1 cm; Wt 63.6 kg
[2025-01-28 12:08] VITALS: BP 106/73; PULSE 92; RESP 20; TEMP 98.7; O2SAT 99
[2025-01-28 12:20] LABS: COVID AG,FIA SOURCE NASAL SWAB
[2025-01-28 12:44] LABS: SARS-COV2 (COVID) ANTIGEN,FIA Negative (Negative)
[2025-01-28 12:55] LABS: PLATELET COUNT (AUTO) 269 K/uL (150-450); RED BLOOD CELL COUNT(AUTO) 4.71 MIL/uL (4.00-5.20); RED CELL DISTRIBUTION WIDTH 12.8 % (11.5-14.5); WHITE BLOOD COUNT (AUTO) 4.1 K/uL (4.5-11.0)
[2025-01-28 12:58] LABS: CALCIUM, TOTAL 8.9 mg/dL (8.8-10.5); CREATININE 0.75 mg/dL (0.60-1.30); GLOMERULAR FILTR. RATE CALC > 60 mL/min (>60); GLUCOSE,RANDOM 101 mg/dL (70-110); SODIUM SERUM 143 mmol/L (136-145); UREA NITROGEN, BLOOD 11 mg/dL (7-18)
[2025-01-28 14:18] LABS: APPEARANCE,URINE HAZY (CLEAR); GLUCOSE, URINE (UA) NEGATIVE (NEGATIVE); LEUKOCYTE ESTERASE ,URINE NEGATIVE (NEGATIVE); NITRATE,URINE NEGATIVE (NEGATIVE); OCCULT BLOOD,URINE NEGATIVE (NEGATIVE); PH,URINE DRUG SCREEN 5.5 (5.0-8.0); SPECIFIC GRAVITIY, URINE 1.032 (1.003-1.030)
[2025-01-28 14:43] LABS: ALCOHOL, URINE DRUG SCREEN NEGATIVE (NEGATIVE); AMPHET/METH SCREEN,URINE NEGATIVE (NEGATIVE); BARBITURATE SCREEN, URINE NEGATIVE (NEGATIVE); CANNABINOID SCREEN,URINE NEGATIVE (NEGATIVE); COCAINE SCREEN,URINE NEGATIVE (NEGATIVE); METHADONE SCREEN, URINE NEGATIVE (NEGATIVE)
[2025-01-28] MEDS: FAMOTIDINE 20 MG/2 ML VIAL IVP ONE (15:34)
[2025-01-28] MEDS: KETOROLAC TROMETHAMINE 30 MG/ML VIAL IVP ONE (15:34)
[2025-01-28] MEDS: ONDANSETRON HCL 4 MG/2 ML VIAL IVP ONE (15:34)
[2025-01-28] MEDS ORDERED: 0.9% SODIUM CHLORIDE 10 ML SYRINGE IVP ONE (16:27)
[2025-01-28] MEDS ORDERED: IOHEXOL 300 MG/ML 100 ML VIAL ONE (16:27)
[2025-01-28] MEDS ORDERED: SODIUM CHLORIDE 0.9% 100 ML ONE (16:27)
[2025-01-28 16:32] LABS: ASPARTATE AMINOTRANSFERASE 29.0 U/L (15-37); TOTAL PROTEIN, SERUM 7.6 g/dL (6.4-8.2)
== END 2025-01-28 17:47 | disposition home or self-care (01) ==
LOC: EMS 12:07
DX: R10.33 Periumbilical pain (principal); F41.9 Anxiety disorder, unspecified; F31.9 Bipolar disorder, unspecified; K50.90 Crohn's disease, unspecified, without complications; Z90.710 Acquired absence of both cervix and uterus; Z90.49 Acquired absence of other specified parts of digestive tract; Z79.899 Other long term (current) drug therapy; Z20.822 Contact with and (suspected) exposure to COVID-19
CPT/HCPCS: 99285; 74177; 96374; 96375; 87426; 80048; 80076; 83690; 84703; 85025; 80307; 81003; 36415; J1885; G0480; J3490; J2405; J7050; Q9967

== ENCOUNTER 2025-02-27 21:56 | Emergency (ER) | payer OTHER ==
[~2025-02-27] VITALS: Ht 165.1 cm; Wt 88.0 kg
[2025-02-27 22:11] VITALS: BP 125/88; PULSE 86; RESP 16; TEMP 98.2; O2SAT 100
== END 2025-02-28 02:03 | disposition home or self-care (01) ==
LOC: EMS 21:56
DX: F41.0 Panic disorder [episodic paroxysmal anxiety] (principal); F31.9 Bipolar disorder, unspecified; K50.90 Crohn's disease, unspecified, without complications; Z91.010 Allergy to peanuts; Z91.040 Latex allergy status; Z90.49 Acquired absence of other specified parts of digestive tract; Z90.710 Acquired absence of both cervix and uterus; Z79.899 Other long term (current) drug therapy
CPT/HCPCS: 99283

== ENCOUNTER 2025-03-08 16:16 | Inpatient (IN) | payer MEDICAID, OTHER ==
[~2025-03-08] VITALS: Ht 160 cm; Wt 64.9 kg
[2025-03-08 16:50] LABS: PLATELET COUNT (AUTO) 232 K/uL (150-450); RED BLOOD CELL COUNT(AUTO) 4.54 MIL/uL (4.00-5.20); RED CELL DISTRIBUTION WIDTH 13.2 % (11.5-14.5); WHITE BLOOD COUNT (AUTO) 5.6 K/uL (4.5-11.0)
[2025-03-08 16:50] LABS: COVID AG,FIA SOURCE NASAL SWAB
[2025-03-08 16:58] LABS: CALCIUM, TOTAL 9.1 mg/dL (8.8-10.5); CREATININE 0.78 mg/dL (0.60-1.30); GLOMERULAR FILTR. RATE CALC > 60 mL/min (>60); GLUCOSE,RANDOM 102 mg/dL (70-110); SODIUM SERUM 138 mmol/L (136-145); UREA NITROGEN, BLOOD 13 mg/dL (7-18)
[2025-03-08 17:11] LABS: SARS-COV2 (COVID) ANTIGEN,FIA Negative (Negative)
[2025-03-08 18:44] LABS: PH,URINE DRUG SCREEN 5.5 (5.0-8.0)
[2025-03-08 18:51] LABS: ALCOHOL, URINE DRUG SCREEN NEGATIVE (NEGATIVE); AMPHET/METH SCREEN,URINE NEGATIVE (NEGATIVE); BARBITURATE SCREEN, URINE NEGATIVE (NEGATIVE); CANNABINOID SCREEN,URINE NEGATIVE (NEGATIVE); COCAINE SCREEN,URINE NEGATIVE (NEGATIVE); METHADONE SCREEN, URINE NEGATIVE (NEGATIVE)
[2025-03-08 20:50] LABS: APPEARANCE,URINE TURBID (CLEAR); GLUCOSE, URINE (UA) NEGATIVE (NEGATIVE); LEUKOCYTE ESTERASE ,URINE NEGATIVE (NEGATIVE); NITRATE,URINE NEGATIVE (NEGATIVE); OCCULT BLOOD,URINE NEGATIVE (NEGATIVE); SPECIFIC GRAVITIY, URINE 1.030 (1.003-1.030)
[2025-03-09 00:33] VITALS: O2SAT 98
[2025-03-09] MEDS: ZOLPIDEM TARTRATE 10 MG TABLET PO PRN (02:50)
[2025-03-09 03:01] VITALS: BP 110/90; PULSE 89; RESP 18; TEMP 98.6
[2025-03-09 08:26] VITALS: BP 100/68; PULSE 83; RESP 19; TEMP 98; O2SAT 100
[2025-03-09 09:09] LABS: PLATELET COUNT (AUTO) 215 K/uL (150-450); RED BLOOD CELL COUNT(AUTO) 4.32 MIL/uL (4.00-5.20); RED CELL DISTRIBUTION WIDTH 13.2 % (11.5-14.5); WHITE BLOOD COUNT (AUTO) 4.9 K/uL (4.5-11.0)
[2025-03-09] MEDS ORDERED: PETROLATUM,WHITE 28 GM JELLY TP PRN (09:30)
[2025-03-09] MEDS ORDERED: IBUPROFEN 600 MG TABLET PO PRN (09:30)
[2025-03-09] MEDS ORDERED: ALBUTEROL SULFATE HFA 90 MCG/PUFF 8 GM INHALER IH PRN (09:30)
[2025-03-09] MEDS ORDERED: LOPERAMIDE HCL 2 MG CAPSULE PO PRN (09:30)
[2025-03-09] MEDS ORDERED: ACETAMINOPHEN 325 MG TABLET PO PRN (09:30)
[2025-03-09] MEDS ORDERED: OMEPRAZOLE 20 MG CAPSULE PO PRN (09:30)
[2025-03-09] MEDS ORDERED: BENZOCAINE/MENTHOL [CEPACOL] LOZENGE PO PRN (09:30)
[2025-03-09] MEDS ORDERED: ONDANSETRON 4 MG TABLET PO PRN (09:30)
[2025-03-09] MEDS ORDERED: BACITRACIN 28 GM OINTMENT TP PRN (09:30)
[2025-03-09 09:38] LABS: ASPARTATE AMINOTRANSFERASE 14 U/L (15-37); CALCIUM, TOTAL 8.9 mg/dL (8.8-10.5); CHOL/HDL RATIO 2.4 (3.9-5.7); CREATININE 0.77 mg/dL (0.60-1.30); GLOMERULAR FILTR. RATE CALC > 60 mL/min (>60); GLUCOSE,RANDOM 96 mg/dL (70-110); LDL CHOL (CALC.) 33 mg/dL (0-130); SODIUM SERUM 138 mmol/L (136-145); TOTAL PROTEIN, SERUM 6.4 g/dL (6.4-8.2); UREA NITROGEN, BLOOD 15 mg/dL (7-18)
[2025-03-09] MEDS: DIVALPROEX SODIUM 500 MG ER TABLET PO SCH (11:29)
[2025-03-09] MEDS: MAGNESIUM HYDROXIDE SUSPENSION 30 ML UDCUP PO PRN (12:21)
[2025-03-09 20:00] VITALS: BP 115/87; PULSE 98; RESP 17; TEMP 97.7; O2SAT 97
[2025-03-09] MEDS: MAG HYDROX/ALUMINUM HYD/SIMETH ES 30 ML SUSPENSION UDCUP PO PRN (20:08)
[2025-03-10 08:12] VITALS: BP 90/66; PULSE 65; RESP 16; TEMP 97.8; O2SAT 96
[2025-03-10 20:46] VITALS: BP 125/80; PULSE 96; RESP 18; TEMP 97.2; O2SAT 97
[2025-03-11 08:27] VITALS: BP 98/58; PULSE 79; RESP 16; TEMP 97.8; O2SAT 98
[2025-03-11 20:11] VITALS: BP 124/79; PULSE 94; RESP 17; TEMP 97.3; O2SAT 100
[2025-03-12 08:21] VITALS: BP 100/63; PULSE 96; RESP 16; TEMP 98; O2SAT 96
[2025-03-12 20:54] VITALS: BP 114/76; PULSE 98; RESP 18; TEMP 98.2; O2SAT 98
[2025-03-13 08:11] VITALS: BP 112/68; PULSE 88; RESP 16; TEMP 97.8; O2SAT 98
[2025-03-13 20:26] VITALS: BP 116/86; PULSE 100; RESP 18; TEMP 97.5; O2SAT 100
[2025-03-14 08:11] VITALS: BP 102/60; PULSE 89; RESP 16; TEMP 97.2; O2SAT 99
[2025-03-14 20:30] VITALS: BP 103/85; PULSE 105; RESP 18; TEMP 97.9; O2SAT 98
[2025-03-15 08:19] VITALS: BP 112/73; PULSE 82; RESP 16; TEMP 98; O2SAT 99
[2025-03-15 20:17] VITALS: BP 122/84; PULSE 100; RESP 17; TEMP 98.2; O2SAT 98
[2025-03-16 08:24] VITALS: BP 102/75; PULSE 86; RESP 18; TEMP 98; O2SAT 98
[2025-03-16 20:12] VITALS: BP 126/84; PULSE 87; RESP 17; TEMP 97.9; O2SAT 99
[2025-03-17 08:15] VITALS: BP 126/75; PULSE 88; RESP 16; TEMP 97.9; O2SAT 99
[2025-03-17] MEDS ORDERED: DIVA-153 PO (09:51)
[2025-03-17] MEDS ORDERED: QUET200T30 PO (09:51)
== END 2025-03-17 16:02 | disposition home or self-care (01) | DRG 761 ==
LOC: EMS 16:16 → B3A 03-09 02:03
PROVIDERS: ADMIT Psychiatry & Neurology Psychiatry; ATTEND Psychiatry & Neurology Psychiatry
PROC: GZHZZZZ Group Psychotherapy (ICD-10-PCS; principal; 2025-03-09)
PROC: GZ52ZZZ Individual Psychotherapy, Cognitive (ICD-10-PCS; 2025-03-11)
DX: F25.1 Schizoaffective disorder, depressive type (principal); R45.850 Homicidal ideations; F31.9 Bipolar disorder, unspecified; F41.9 Anxiety disorder, unspecified; Z20.822 Contact with and (suspected) exposure to COVID-19; G47.00 Insomnia, unspecified; K50.90 Crohn's disease, unspecified, without complications; F79 Unspecified intellectual disabilities; Y09 Assault by unspecified means; Z79.899 Other long term (current) drug therapy; Z90.49 Acquired absence of other specified parts of digestive tract; Z90.710 Acquired absence of both cervix and uterus; Z91.010 Allergy to peanuts
CPT/HCPCS: 80048; 80053; 80061; 80164; 80307; 81003; 83036; 84436; 84443; 84702; 84703; 85025; G0480

== ENCOUNTER 2025-03-20 20:38 | Emergency (ER) | payer MEDICAID, OTHER ==
[~2025-03-20] VITALS: Ht 157.5 cm; Wt 64.5 kg
[~2025-03-20 20:38] MED LIST changes: -LACT10SO85 PO; -ONDA-104 PO; +QUET200T30 PO; -QUET400T13 PO; -VEDO300V IV
[2025-03-20 20:40] VITALS: TEMP 99.3
[2025-03-20] MEDS: SODIUM CHLORIDE 0.9% 1,000 ML IV ONE (21:46)
[2025-03-20 21:50] LABS: PLATELET COUNT (AUTO) 253 K/uL (150-450); RED BLOOD CELL COUNT(AUTO) 4.07 MIL/uL (4.00-5.20); RED CELL DISTRIBUTION WIDTH 13.4 % (11.5-14.5); WHITE BLOOD COUNT (AUTO) 5.2 K/uL (4.5-11.0)
[2025-03-20 21:55] LABS: CALCIUM, TOTAL 8.8 mg/dL (8.8-10.5); CREATININE 0.63 mg/dL (0.60-1.30); GLOMERULAR FILTR. RATE CALC > 60 mL/min (>60); GLUCOSE,RANDOM 100 mg/dL (70-110); SODIUM SERUM 140 mmol/L (136-145); UREA NITROGEN, BLOOD 15 mg/dL (7-18)
[2025-03-20 22:51] VITALS: BP 110/61; PULSE 105; RESP 18; O2SAT 100
== END 2025-03-20 23:27 | disposition home or self-care (01) ==
LOC: EMS 20:39
DX: R55 Syncope and collapse (principal); F31.9 Bipolar disorder, unspecified; Z90.49 Acquired absence of other specified parts of digestive tract; Z90.710 Acquired absence of both cervix and uterus; Z91.010 Allergy to peanuts; Z91.040 Latex allergy status; Z79.899 Other long term (current) drug therapy
CPT/HCPCS: 99284; 80048; 84703; 85025; 36415; 93005; G0480; J7030

== ENCOUNTER 2025-04-11 22:15 | Emergency (ER) | payer OTHER ==
[~2025-04-11] VITALS: Ht 160 cm; Wt 63.6 kg
[2025-04-11 22:43] VITALS: TEMP 98.1
[2025-04-11 22:47] VITALS: BP 124/80; PULSE 104; RESP 16; O2SAT 98
[2025-04-11] MEDS: ONDANSETRON HCL 4 MG/2 ML VIAL IVP ONE (23:10)
[2025-04-11 23:11] LABS: PLATELET COUNT (AUTO) 253 K/uL (150-450); RED BLOOD CELL COUNT(AUTO) 5.18 MIL/uL (4.00-5.20); RED CELL DISTRIBUTION WIDTH 13.6 % (11.5-14.5); WHITE BLOOD COUNT (AUTO) 10.2 K/uL (4.5-11.0)
[2025-04-11] MEDS: SODIUM CHLORIDE 0.9% 1,000 ML IV ONE (23:11)
[2025-04-11 23:26] LABS: CALCIUM, TOTAL 10.2 mg/dL (8.8-10.5); CREATININE 0.82 mg/dL (0.60-1.30); GLOMERULAR FILTR. RATE CALC > 60 mL/min (>60); GLUCOSE,RANDOM 128 mg/dL (70-110); SODIUM SERUM 142 mmol/L (136-145); UREA NITROGEN, BLOOD 17 mg/dL (7-18)
[2025-04-11 23:30] LABS: ASPARTATE AMINOTRANSFERASE 16.0 U/L (15-37); HCG,QUANTITATIVE 5.0 mIU/mL (0-6); TOTAL PROTEIN, SERUM 8.7 g/dL (6.4-8.2)
[2025-04-12] MEDS ORDERED: ONDA-104 PO (00:33)
== END 2025-04-12 02:38 | disposition home or self-care (01) ==
LOC: EMS 22:18
DX: R19.7 Diarrhea, unspecified (principal); R11.2 Nausea with vomiting, unspecified; F31.9 Bipolar disorder, unspecified; K50.90 Crohn's disease, unspecified, without complications; Z90.49 Acquired absence of other specified parts of digestive tract; Z90.710 Acquired absence of both cervix and uterus; Z91.010 Allergy to peanuts; Z91.040 Latex allergy status
CPT/HCPCS: 99283; 96374; 96361; 80048; 80076; 83690; 84702; 85025; 36415; J2405; J7030

== ENCOUNTER 2025-04-18 23:14 | Emergency (ER) | payer OTHER ==
[~2025-04-18] VITALS: Ht 160 cm; Wt 64.5 kg
[~2025-04-18 23:14] MED LIST changes: +ONDA-104 PO
[2025-04-18 23:57] VITALS: TEMP 97.6
[2025-04-19] MEDS ORDERED: TRAM50TA5 PO (05:32)
[2025-04-19 05:45] VITALS: BP 118/79; PULSE 90; RESP 16; O2SAT 98
== END 2025-04-19 06:34 | disposition home or self-care (01) ==
LOC: EMS 23:17
DX: S93.402A Sprain of unspecified ligament of left ankle, initial encounter (principal); S39.92XA Unspecified injury of lower back, initial encounter; F31.9 Bipolar disorder, unspecified; Z91.010 Allergy to peanuts; Z91.040 Latex allergy status; Z90.49 Acquired absence of other specified parts of digestive tract; Z90.710 Acquired absence of both cervix and uterus; Z98.890 Other specified postprocedural states; Z79.899 Other long term (current) drug therapy; X50.1XXA Overexertion from prolonged static or awkward postures, initial encounter; Y93.89 Activity, other specified; Y92.89 Other specified places as the place of occurrence of the external cause; Y99.8 Other external cause status
CPT/HCPCS: 99284